=== PATIENT | male | born 2000 | race Caucasian/White ===

== ENCOUNTER 2020-04-16 18:01 | Emergency (ER) | payer SELFPAY ==
[~2020-04-16] VITALS: Ht 182.9 cm; Wt 90.7 kg
== END 2020-04-16 19:18 | disposition home or self-care (01) ==
LOC: ER 18:01
DX: S16.1XXA Strain of muscle, fascia and tendon at neck level, initial encounter (principal); R51 Headache; W22.8XXA Striking against or struck by other objects, initial encounter
CPT/HCPCS: 70450; 72125; 99284-25

== ENCOUNTER 2020-06-05 08:41 | Emergency (ER) | payer SELFPAY ==
[~2020-06-05] VITALS: Ht 185.4 cm; Wt 86.2 kg
== END 2020-06-05 09:40 | disposition home or self-care (01) ==
LOC: ER 08:41
DX: H61.21 Impacted cerumen, right ear (principal); F17.200 Nicotine dependence, unspecified, uncomplicated
CPT/HCPCS: 99282